=== PATIENT | female | born 1985 | race Caucasian/White ===

== ENCOUNTER 2023-06-18 22:01 | Emergency (ER) | payer OTHER ==
[2023-06-18] MEDS: Haloperidol Lactate 5 MG/ML SDV IM ONE (22:14)
[2023-06-18 22:31] LABS: BASOPHILS ABSOLUTE AUTO 0.04 10^3/uL (0.00-0.50); BASOPHILS PERCENT AUTO 0.7 % (0-1); EOSINOPHILS ABSOLUTE AUTO 0.08 10^3/uL (0.00-1.50); EOSINOPHILS PERCENT AUTO 1.3 % (0-6); HEMATOCRIT 37.2 % (37.0-47.0); HEMOGLOBIN 13.1 g/dL (12.0-16.0); LYMPHOCYTES ABSOLUTE AUTO 1.48 10^3/uL (0.60-5.00); LYMPHOCYTES PERCENT AUTO 24.3 % (24-44); MEAN CORPUSCULAR HEMOGLOBIN 30.4 pg (27.0-32.0); MEAN CORPUSCULAR HGB CONC 35.2 g/dL (32.0-36.0); MEAN CORPUSCULAR VOLUME 86.3 fL (83.0-97.0); MONOCYTES PERCENT AUTO 14.8 % (0-10); NEUTROPHILS ABSOLUTE AUTO 3.58 x10^3/uL (1.80-8.00); NEUTROPHILS PERCENT AUTO 58.9 % (41-71); PLATELET COUNT,PLT 199 10^3/uL (150-400); RED BLOOD CELL COUNT 4.31 x10^6/uL (4.00-5.50); WHITE BLOOD CELL COUNT,WBC 6.1 10^3/uL (4.0-11.0)
[2023-06-18 22:36] LABS: APPEARANCE,URINE CLEAR (CLEAR); BILIRUBIN,URINE NEGATIVE (NEGATIVE); COLOR,URINE YELLOW (YELLOW); GLUCOSE,URINE NEGATIVE (NEGATIVE); KETONES,URINE 15 mg/dL (NEGATIVE); LEUKOCYTE ESTERASE,URINE NEGATIVE (NEGATIVE); NITRITE,URINE NEGATIVE (NEGATIVE); OCCULT BLOOD,URINE MODERATE (NEGATIVE); PROTEIN,URINE NEGATIVE (NEGATIVE); UROBILINOGEN,URINE 0.2 EU/dL (0.2-1.0)
[2023-06-18 22:39] LABS: AMPHETAMINES,URINE NEGATIVE (NEGATIVE); BARBITURATES,URINE NEGATIVE (NEGATIVE); BENZODIAZEPINE,URINE NEGATIVE (NEGATIVE); MDMA (ECSTASY), URINE NEGATIVE (NEGATIVE); METHADONE,URINE NEGATIVE (NEGATIVE); METHAMPHETAMINES,URINE NEGATIVE (NEGATIVE); OPIATES,URINE NEGATIVE (NEGATIVE); OXYCODONE,URINE NEGATIVE (NEGATIVE); PHENCYCLIDINE,URINE NEGATIVE (NEGATIVE); TCA,URINE NEGATIVE (NEGATIVE)
[2023-06-18 22:41] LABS: BACTERIA,URINE OCCASIONAL /HPF (NOT SEEN); EPITHELIAL CELLS,URINE OCCASIONAL /HPF (NOT SEEN); MUCUS,URINE FEW /HPF (NOT SEEN); RBC,URINE 0-5 /HPF (0-5); WBC,URINE 0-5 /HPF (0-5)
[2023-06-18 22:44] LABS: ALANINE AMINOTRANSFERASE,ALT 15 U/L (12-78); ALBUMIN 4.3 g/dL (3.4-5.0); ALKALINE PHOSPHATASE 68 U/L (46-116); ASPARTATE AMNIOTRANSFERASE,AST 12 U/L (15-37); BILIRUBIN TOTAL 0.9 mg/dL (0.0-1.0); BLOOD UREA NITROGEN,BUN 10 mg/dL (7-18); C-REACTIVE PROTEIN 0.09 mg/dL (<=0.30); CALCIUM 9.3 mg/dL (8.4-10.1); CARBON DIOXIDE,CO2 27 mmol/L (21-32); CHLORIDE,CL 102 mEq/L (98-106); CREATININE 0.8 mg/dL (0.6-1.0); ESTIMATED GFR 97 mL/min (>=60); ETHANOL BLOOD MEDICAL < 3 mg/dL (0-3); GLUCOSE RANDOM 109 mg/dL (75-99); POTASSIUM,K 3.3 mEq/L (3.5-5.0); PROTEIN TOTAL,TP 7.6 g/dL (6.4-8.2); SODIUM,NA 140 mEq/L (136-145)
[2023-06-18 22:55] VITALS: BP 128/62; PULSE 82
[2023-06-18] MEDS: Potassium Chloride 10 MEQ Tab.ER PO STA (23:32)
== END 2023-06-19 01:05 ==
LOC: CC.ED 22:01
DX: F06.2 Psychotic disorder with delusions due to known physiological condition (principal); F99 Mental disorder, not otherwise specified
CPT/HCPCS: 36415; 80053; 80305-QW; 80307; 81001; 81025; 85025; 86140; 96372; 99284; 99285; A9270-GY; J1630

== ENCOUNTER 2024-09-04 09:45 | Emergency (ER) | payer BC, OTHER ==
[2024-09-04 10:06] LABS: BASOPHILS ABSOLUTE AUTO 0.05 10^3/uL (0.00-0.50); BASOPHILS PERCENT AUTO 1.1 % (0-1); EOSINOPHILS ABSOLUTE AUTO 0.04 10^3/uL (0.00-1.50); EOSINOPHILS PERCENT AUTO 0.9 % (0-6); HEMATOCRIT 37.8 % (37.0-47.0); HEMOGLOBIN 12.6 g/dL (12.0-16.0); LYMPHOCYTES PERCENT AUTO 26.5 % (24-44); MEAN CORPUSCULAR HEMOGLOBIN 29.7 pg (27.0-32.0); MEAN CORPUSCULAR HGB CONC 33.3 g/dL (32.0-36.0); MEAN CORPUSCULAR VOLUME 89.2 fL (83.0-97.0); MONOCYTES ABSOLUTE AUTO 0.59 10^3/uL (0.00-1.50); NEUTROPHILS ABSOLUTE AUTO 2.65 x10^3/uL (1.80-8.00); NEUTROPHILS PERCENT AUTO 58.5 % (41-71); PLATELET COUNT,PLT 189 10^3/uL (150-400); RED BLOOD CELL COUNT 4.24 x10^6/uL (4.00-5.50); WHITE BLOOD CELL COUNT,WBC 4.5 10^3/uL (4.0-11.0)
[2024-09-04 10:10] VITALS: BP 102/65; PULSE 66
[2024-09-04 10:25] LABS: ALANINE AMINOTRANSFERASE,ALT 13 U/L (12-78); ALBUMIN 3.7 g/dL (3.4-5.0); ALKALINE PHOSPHATASE 67 U/L (46-116); ASPARTATE AMNIOTRANSFERASE,AST 9 U/L (15-37); BILIRUBIN TOTAL 0.6 mg/dL (0.0-1.0); BLOOD UREA NITROGEN,BUN 10 mg/dL (7-18); C-REACTIVE PROTEIN < 0.50 mg/dL (<=0.50); CARBON DIOXIDE,CO2 28 mmol/L (21-32); CHLORIDE,CL 102 mEq/L (98-106); CREATININE 0.9 mg/dL (0.6-1.0); ESTIMATED GFR 83 mL/min (>=60); GLUCOSE RANDOM 97 mg/dL (75-99); MAGNESIUM 1.7 mg/dL (1.8-2.4); POTASSIUM,K 3.9 mEq/L (3.5-5.0); PROTEIN TOTAL,TP 6.6 g/dL (6.4-8.2); SODIUM,NA 137 mEq/L (136-145)
== END 2024-09-04 11:10 | disposition home or self-care (01) ==
LOC: CC.ED 09:45
DX: R07.89 Other chest pain (principal); Z79.899 Other long term (current) drug therapy
CPT/HCPCS: 36415; 71046; 80053; 83735; 84484; 85025; 85379; 86140; 93005; 99285